=== PATIENT | male | born 1960 | race Caucasian/White ===

== ENCOUNTER 2023-02-24 23:04 | Emergency (ER) | payer OTHER ==
[~2023-02-24] VITALS: Ht 182.9 cm; Wt 88.5 kg
[2023-02-24 23:15] VITALS: BP_SYST 152
[2023-02-24] MEDS ORDERED: NACL 0.9% 1,000 ML IV ONE (23:45)
[2023-02-24] MEDS ORDERED: KETOROLAC TROMETHAMINE 30 MG VIAL IVP ONE (23:45)
[2023-02-25 00:49] LABS: BASOPHILS % (AUTO) 0.4 % (0.0-2.0); EOSINOPHILS # (AUTO) 0.2 K/uL (0.0-0.4); EOSINOPHILS % (AUTO) 3.1 % (0.0-4.0); HEMATOCRIT 45.5 % (36-54); HEMOGLOBIN 15.3 g/dL (14.0-18.0); LYMPHOCYTES # (AUTO) 1.8 K/uL (1.0-5.5); LYMPHOCYTES % (AUTO) 22.1 % (20.5-51.5); MEAN CORPUSCULAR HEMOGLOBIN 29 pg (27-31); MEAN CORPUSCULAR HGB CONC 34 % (32-36); MEAN CORPUSCULAR VOLUME 87 fL (79.0-98.0); MONOCYTES # (AUTO) 0.6 K/uL (0.0-1.0); MONOCYTES % (AUTO) 7.1 % (1.7-9.3); NEUTROPHILS # (AUTO) 5.4 K/uL (1.8-7.7); NEUTROPHILS % (AUTO) 67.3 % (40.0-70.0); PLATELET COUNT (AUTO) 239 K/uL (130-430); RED BLOOD CELL COUNT(AUTO) 5.21 MIL/uL (4.2-6.2); RED CELL DISTRIBUTION WIDTH 16.8 % (9.0-15.0)
[2023-02-25 00:54] LABS: CALCIUM 8.9 mg/dL (8.4-11.0); CREATININE 1.59 mg/dL (0.55-1.30)
[2023-02-25 00:58] LABS: ALBUMIN 3.9 g/dL (3.4-4.8); TOTAL BILIRUBIN 0.4 mg/dL (0.0-1.0)
[2023-02-25 01:31] LABS: BILIRUBIN,URINE NEGATIVE (NEGATIVE); BLOOD, URINE 2+ (NEGATIVE); CLARITY/URINE CLEAR (CLEAR); COLOR,URINE YELLOW (YELLOW); GLUCOSE,URINE NEGATIVE (NEGATIVE); KETONES,URINE NEGATIVE (NEGATIVE); LEUKOCYTE ESTERASE ,URINE NEGATIVE (NEGATIVE); NITRITE, URINE NEGATIVE (NEGATIVE); PROTEIN URINE 1+ (NEGATIVE); UROBILINOGEN,URINE 0.2 (0.2-1.0)
[2023-02-25 01:36] LABS: BACTERIA,URINE None Seen /HPF (None Seen); RBC,URINE 20-50 /HPF (0-3); WBC,URINE 0-3 /HPF (0-3)
[2023-02-25] MEDS ORDERED: IBUP-1969 PO (01:47)
[2023-02-25] MEDS ORDERED: TAMS-11 PO (01:47)
[2023-02-25 02:20] VITALS: BP_SYST 141
== END 2023-02-25 02:20 | disposition home or self-care (01) ==
LOC: SED 23:04
DX: R33.9 Retention of urine, unspecified (principal); N13.2 Hydronephrosis with renal and ureteral calculous obstruction; N13.4 Hydroureter; D35.00 Benign neoplasm of unspecified adrenal gland; I10 Essential (primary) hypertension; Z79.899 Other long term (current) drug therapy
CPT/HCPCS: 99285; 74176; 80053; 81000; 85025; 87040; 87086; 36415; 76376; 83605; 96374; 96361; J1885; J7030

== ENCOUNTER 2023-09-27 03:23 | Emergency (ER) | payer MEDICAID, OTHER ==
[~2023-09-27] VITALS: Ht 182.9 cm; Wt 86.2 kg
[~2023-09-27 03:23] MED LIST: IBUP-1969 PO; TAMS-11 PO
[2023-09-27 03:28] VITALS: BP_SYST 149; PULSE 93; RESP 17; TEMP 97.7; O2SAT 100
[2023-09-27] MEDS ORDERED: MORPHINE 4 MG INJ. 4 MG/ML VIAL IVP ONE (03:45)
[2023-09-27] MEDS ORDERED: NACL 0.9% 1,000 ML IV ONE (03:45)
[2023-09-27] MEDS ORDERED: KETOROLAC TROMETHAMINE 30 MG VIAL IVP ONE (03:45)
[2023-09-27 04:13] LABS: MEAN CORPUSCULAR VOLUME 92 fL (79.0-98.0); NEUTROPHILS # (AUTO) 9.4 K/uL (1.8-7.7)
[2023-09-27 04:19] LABS: BILIRUBIN,URINE NEGATIVE (NEGATIVE); BLOOD, URINE 2+ (NEGATIVE); COLOR,URINE YELLOW (YELLOW); GLUCOSE,URINE NEGATIVE (NEGATIVE); KETONES,URINE NEGATIVE (NEGATIVE); LEUKOCYTE ESTERASE ,URINE NEGATIVE (NEGATIVE); NITRITE, URINE NEGATIVE (NEGATIVE); PROTEIN URINE NEGATIVE (NEGATIVE); UROBILINOGEN,URINE 0.2 (0.2-1.0)
[2023-09-27 04:21] LABS: BASOPHILS % (AUTO) 0.3 % (0.0-2.0); EOSINOPHILS # (AUTO) 0.1 K/uL (0.0-0.4); EOSINOPHILS % (AUTO) 1.2 % (0.0-4.0); HEMATOCRIT 48.8 % (36-54); HEMOGLOBIN 16.9 g/dL (14.0-18.0); LYMPHOCYTES % (AUTO) 15.8 % (20.5-51.5); MEAN CORPUSCULAR HEMOGLOBIN 32 pg (27-31); MEAN CORPUSCULAR HGB CONC 35 % (32-36); MONOCYTES # (AUTO) 0.9 K/uL (0.0-1.0); MONOCYTES % (AUTO) 7.5 % (1.7-9.3); NEUTROPHILS % (AUTO) 75.2 % (40.0-70.0); PLATELET COUNT (AUTO) 275 K/uL (130-430); RED BLOOD CELL COUNT(AUTO) 5.31 MIL/uL (4.2-6.2); RED CELL DISTRIBUTION WIDTH 13.2 % (9.0-15.0); WHITE BLOOD COUNT (AUTO) 12.5 K/uL (4.8-10.8)
[2023-09-27 04:23] LABS: CLARITY/URINE HAZY (CLEAR)
[2023-09-27 04:31] LABS: BACTERIA,URINE None Seen /HPF (None Seen); RBC,URINE 20-50 /HPF (0-3); WBC,URINE 0-3 /HPF (0-3)
[2023-09-27 04:33] LABS: CALCIUM 11.1 mg/dL (8.4-11.0); CREATININE 1.57 mg/dL (0.55-1.30); POTASSIUM 4.2 mmol/L (3.5-5.1)
[2023-09-27 04:37] LABS: ALBUMIN 4.3 g/dL (3.4-4.8); BILIRUBIN,DIRECT 0.2 mg/dL (0.0-0.3); TOTAL BILIRUBIN 0.7 mg/dL (0.0-1.0); TOTAL PROTEIN, SERUM 7.4 g/dL (6.4-8.3)
[2023-09-27] MEDS ORDERED: HYDR-3917 PO (07:42)
[2023-09-27] MEDS ORDERED: TAMS-11 PO (07:42)
[2023-09-27] MEDS ORDERED: IBUP-1969 PO (07:42)
[2023-09-27 08:55] VITALS: BP_SYST 157; PULSE 90; RESP 18; TEMP 98.1; O2SAT 99
== END 2023-09-27 08:56 | disposition home or self-care (01) ==
LOC: SED 03:23
DX: N23 Unspecified renal colic (principal); Z88.0 Allergy status to penicillin; Z88.5 Allergy status to narcotic agent; Z79.899 Other long term (current) drug therapy
CPT/HCPCS: 99285; 74176; 96374; 96361; 96375; 80076; 80048; 81000; 81001; 85025; 36415; 76376; 81015; J1885; J2270; J7030